=== PATIENT | male | born 1955 | race Caucasian/White ===

== ENCOUNTER 2017-07-26 14:35 | Emergency (ER) | payer OTHER ==
[~2017-07-26] VITALS: Ht 180.3 cm; Wt 117.9 kg
--- OUTSIDE RECORDS SUMMARY | 2017-07-26 15:01 | External Medical Summary Rpt | CCD ---
Author Author , YASMEEN ARANA Address Unknown Phone [email or web address] Purpose Continuity of Care Document - through 2016
--- OUTSIDE RECORDS SUMMARY | 2017-07-26 15:01 | External Medical Summary Rpt | CCD ---
Author Author [employer] Organization [employer] Address Unknown Phone Unavailable Purpose Continuity of Care Document - through 2016
--- OUTSIDE RECORDS SUMMARY | 2017-07-26 15:01 | External Medical Summary Rpt | CCD ---
Author Author , YASMEEN ARANA Address Unknown Phone [email or web address] Purpose Continuity of Care Document - through 2016
--- OUTSIDE RECORDS SUMMARY | 2017-07-26 15:02 | External Medical Summary Rpt | CCD ---
Author Author , YASMEEN ARANA Address Unknown Phone [email or web address] Immunization Name Date Rout CVX Reac Dose Comm Prov Is Faci e tion ent ider Refu lity Give sed n Infl 10-2 Intr 150 0.5 Hist [facility] No [facility] uenz 6-20 amus mL oric ART7 ART7 a 16 cula al 259 259 Quad r Info Inj rmat ion - Sour ce Unsp ecif ied
--- OUTSIDE RECORDS SUMMARY | 2017-07-26 15:02 | External Medical Summary Rpt | CCD ---
Author Author , YASMEEN ARANA Address Unknown Phone [email or web address] Immunization Name Date Rout CVX Reac Dose Comm Prov Is Faci e tion ent ider Refu lity Give sed n Infl 10-2 Intr 150 0.5 Hist [facility] No [facility] uenz 6-20 amus mL oric ART7 ART7 a 16 cula al 259 259 Quad r Info Inj rmat ion - Sour ce Unsp ecif ied
--- NOTE | 2017-07-26 16:01 | Emergency Room Report ---
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 N Clinical Suspician of Infection? N Mental Status: 1 - Regular (Normal Baseline) Sepsis Risk:Low Sepsis Risk Have you (or family members/close friends) recently traveled outside the [place]? N If Yes, where/when: Have you had exposure to infectious disease within the past month? N TB? Other? 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 Denies weakness or numbness. ALLERGIES Coded Allergies: No Known Allergies (12/08/15) History Medical History General Hypertension? Yes Hyperlipidemia? No CHF? No DVT? No PE? No COPD? No Asthma? No CVA? No Seizures? No Diabetes? No Renal Insuffiency? No End Stage Renal Disease? No UTI? No Stones? No Immunization Hx DT/Tetanus > 10 Years Ago Surgical Hx Previous Surgery?Y Back Surgery KNEE Social History Smoking Hx Smoker: Never Smoker Tobacco: No Alcohol Alcohol: No Review of Systems All Other Systems Reviewed and Negative Skin see HPI Physical Exam Vital Signs Vital Signs Date Time Temp Pulse Resp B/P Pulse O2 O2 Flow FiO2 Ox Delivery Rate 07/26 1443 97.0 100 18 137/87 95 General Appearance normal appearance, WD/WN Eye Exam - bilateral eye normal exam, bilateral eye PERRL Neck supple Respiratory Status No: respiratory distress. Cardiovascular no peripheral edema, normal peripheral pulses Extremities normal range of motion Strength 5 Upper Ext (L) Neurologic alert, normal exam, no motor/sensory deficits, oriented x 3 Skin laceration(s), macerated 3.5 cm laceration left fifth digit dorsally and somewhat medially, no tendon or bone exposure; at level of PIP with good function of each joint as checked in isolation; no debris; multiple flaps and some absent epidermal layer with somewhat macerated subcutaneous layer. Bleeding controlled. Medical Decision Making LABS/Meds/Orders Pt receiving controlled substance in ED? No Results/Orders Current Medication Orders Sig/Chucky Start time Last Medication Dose Route Stop Time Status Admin Multi-Ingredient 1 UDP ONCE ONE 07/26 1600 AC Ointment TP 07/26 1601 Multi-Ingredient 0 .STK-MED ONE 07/26 1557 DC Ointment TP Diphtheria/Pertussis/ 0 .STK-MED ONE 07/26 1513 DC Tetanus Vacc IM Diphtheria/Pertussis/ 0.5 ML ONCE ONE 07/26 1500 DC 07/26 Tetanus Vacc IM 07/26 1501 1520 Lidocaine HCl 20 ML ONCE ONE 07/26 1500 DC IJ 07/26 1501 Lidocaine HCl 0 .STK-MED ONE 07/26 1459 DC .ROUTE Procedures Laceration/Wound Repair Laceration/Wound Repair Risks/benefits discussed with pt/guardian? Yes Tetanus status up to date (updated today) Wound Location finger(s) Wound Length (cm) 3.5 Wound's Depth, Shape sucutaneous tissue, irregular, flap(s), stellate Wound Explored no FB identified Irrigated w/ Saline (ccs) 100 Wound Prep Hibiclens Anesthesia 1% Lidocaine Volume Anesthetic (ccs) 5 Wound Debrided minimal Wound Repaired With sutures Suture Size/Type 4:0, Ethilon Layer Closure No Total Number Sutures 13 Sterile Dressing Applied Yes (aleah taped) Departure Departure Time of Disposition 1559 Disposition DC Home or Self Care(routine) Clinical Impression Primary Impression: Finger laceration Qualifiers: Encounter type: initial encounter Finger: little finger Damage to nail status: without damage Foreign body presence: without foreign body Laterality: left Qualified Code: S61.217A - Laceration without foreign body of left little finger without damage to nail, initial encounter Condition STABLE Referrals Cheo PEARSON,A.C. Discharge Counseling Counseled pt/family regarding diagnosis, home care, follow up needs (risk of scarring as macerated) ED Critical Care Critical Care No at 1600
[2017-07-26 16:25] VITALS: BP 137/87
== END 2017-07-26 16:31 | disposition home or self-care (01) ==
LOC: ER 14:35
PROC: 0HQGXZZ Repair Left Hand Skin, External Approach (ICD-10-PCS; principal; 2017-07-26)
DX: S61.217A Laceration without foreign body of left little finger without damage to nail, initial encounter (principal); W31.2XXA Contact with powered woodworking and forming machines, initial encounter; Y92.9 Unspecified place or not applicable; Z23 Encounter for immunization; I10 Essential (primary) hypertension